=== PATIENT | female | born 1960 | race Caucasian/White ===

== ENCOUNTER 2020-10-17 15:35 | Emergency (ER) | payer OTHER, MEDICARE ==
[~2020-10-17] VITALS: Ht 154.9 cm; Wt 77.3 kg
[2020-10-17 16:09] LABS: GLUCOSE,POINT OF CARE 98 MG/DL (70-110)
[2020-10-17] MEDS ORDERED: KETOROLAC TROMETHAMINE 30 MG/ML VIAL IM ONE (18:30)
[2020-10-17 18:51] VITALS: BP 141/65
== END 2020-10-17 18:54 | disposition home or self-care (01) ==
LOC: EMS 15:35
DX: S13.4XXA Sprain of ligaments of cervical spine, initial encounter (principal); M54.5 Low back pain; E11.9 Type 2 diabetes mellitus without complications; F17.210 Nicotine dependence, cigarettes, uncomplicated; V49.9XXA Car occupant (driver) (passenger) injured in unspecified traffic accident, initial encounter; Y93.89 Activity, other specified; Y92.481 Parking lot as the place of occurrence of the external cause; Y99.8 Other external cause status
CPT/HCPCS: 72125; 72131; 82962; 96372; 99285; J1885